=== PATIENT | male | born 1965 | race Caucasian/White ===

== ENCOUNTER → 2016-06-12 | Outpatient (CLI) | payer OTHER ==
--- NOTE | 2016-06-12 19:54 | CT ---
EXAMINATION TYPE: CT soft tissue neck w con DATE OF EXAM: 06/12/2016 5:22 PM COMPARISON: NONE HISTORY: pain when swallowing and feeling of foreign object in throat. CT DLP: 846 mGycm CONTRAST: CT scan of the neck is performed with IV Contrast, patient injected with 100 mL of Omnipaque 300. Contrast enhanced CT of the neck was performed from the skull base through the lung apices. AIRWAY: The supraglottic, glottic, and subglottic portions of the airway appear patent and free of mass. SALIVARY GLANDS: The submandibular and parotid glands are free of mass or inflammatory process. THYROID GLAND: No nodules or masses seen. LYMPH NODES: No adenopathy seen greater than 1cm. LUNG APICES: No nodule or mass is seen. OTHER: Vascular structures are patent. No significant degenerative change of the cervical spine. N o abscess seen. IMPRESSION: No distinct abnormality seen. No foreign body evident.
== END | disposition home or self-care (01) ==
LOC: RADCTMAIN 16:54
PROVIDERS: ATTEND Otolaryngology
DX: R13.10 Dysphagia, unspecified (principal)
CPT/HCPCS: 70491; Q9967

== ENCOUNTER → 2016-06-25 | Outpatient (CLI) | payer OTHER | END | disposition home or self-care (01) | LOC: LABWHC1 16:18 | PROVIDERS: ATTEND Otolaryngology | DX: E06.9 Thyroiditis, unspecified (principal) | CPT/HCPCS: 36415; 84439; 84443; 86376 ==

== ENCOUNTER 2016-07-26 09:44 | Day surgery (SDC) | payer OTHER ==
[2016-07-23 15:47] VITALS: BMI 27.6
[~2016-07-26 09:44] MED LIST: LACTATED RINGERS 1,000 ML IV SCH
[2016-07-26] MEDS ORDERED: LIDOCAINE 1% 20 ML VIAL (10MG/ML) FOR IV START INTRADERMA ONE (10:12)
[2016-07-26 10:19] VITALS: TEMP 97.5
[2016-07-26] MEDS ORDERED: fentaNYL (PF) 50 MCG/ML 2 ML AMP ONE (10:48)
[2016-07-26] MEDS ORDERED: MIDAZOLAM 2 MG/2 ML VIAL ONE (10:48)
[2016-07-26] MEDS ORDERED: PROPOFOL 10 MG/ML 20 ML VIAL IV ONE (10:48)
--- NOTE | 2016-07-26 11:11 | P.PCN ---
Date of Procedure: 07/26/16 Procedure(s) Performed: BRIEF HISTORY: Patient is a 51-year-old, pleasant, white male, scheduled for an upper endoscopy as a part of evaluation of intermittent dysphagia to solids for the last few weeks duration. He does complain of occasional heartburn but denies any odynophagia. He does have passive regurgitation. He takes Prilosec as needed. PROCEDURE PERFORMED: Esophagogastroduodenoscopy with biopsy. PREOPERATIVE DIAGNOSIS: Intermittent dysphagia to solids and history of gastroesophageal reflux disease. IV sedation per anesthesia. PROCEDURE: After informed consent was obtained, the patient was brought into the endoscopy unit. IV conscious sedation was administered by Anesthesia under continuous monitoring. Initially the Olympus GIF-140 video endoscope was inserted into the mouth. Esophagus intubated without any difficulty. There was some tightness noted and the cricopharyngeus but no obvious stricture identified. The scope was gradually advanced into the stomach and duodenum and carefully examined. The bulb and the second part of the duodenum appeared normal. The scope at this time was withdrawn to the stomach, adequately insufflated with air, and upon careful examination, mucosa of the antrum, body, cardia and the fundus appeared normal. The scope was then withdrawn into the esophagus. The GE junction was located at 39 cm from the incisors. The esophagus appeared normal. There were no erosions or ulcerations seen . Biopsies were done from esophagus to rule out years of age esophagitis. The proximal cervical esophagus was once again carefully examined and there appeared to be some stiffness to the passage of the scope and possibility of extrinsic compression from a cervical osteophyte cannot be excluded. However there was no mucosal abnormality seen and the patient tolerated the procedure well. IMPRESSION: 1. Tightness of the cricopharyngeus but no obvious esophageal dysfunction, rule out extrinsic compression him cervical osteophytes. 2. Esophagus appeared normal with no evidence of esophagitis or esophageal stricture. RECOMMENDATIONS: The findings of this examination were discussed with the patient his family. He was advised to follow with the biopsy results. He can continue with Prilosec as needed. He was briefly educated about antireflux measures.
[2016-07-26 11:19] VITALS: PULSE 66; RESP 18
[2016-07-26 11:35] VITALS: BP 117/80
== END 2016-07-26 11:59 | disposition home or self-care (01) ==
LOC: ORWHC2ENDO 09:44
PROVIDERS: ATTEND Internal Medicine Gastroenterology
DX: K22.8 Other specified diseases of esophagus (principal); M54.9 Dorsalgia, unspecified; F17.200 Nicotine dependence, unspecified, uncomplicated; Z79.891 Long term (current) use of opiate analgesic; Z79.1 Long term (current) use of non-steroidal anti-inflammatories (NSAID)
CPT/HCPCS: 88305; 43239; J2250; J3010; J2704

== ENCOUNTER → 2016-09-13 | Outpatient (CLI) | payer OTHER ==
--- NOTE | 2016-09-13 15:27 | NM ---
EXAMINATION TYPE: NM bone scan whole body DATE OF EXAM: 09/13/2016 1:46 PM COMPARISON: Lumbar spine 26 July 2014, lumbar MRI 21 May 2016 HISTORY: Low back pain, M [age] Delayed whole-body scanning was performed following the injection of 27 mCi Tc 99m MDP. Images acqui red 3.5 hours post injection. FINDINGS: Soft tissue uptake is normal. Mild spinal curvature may be present. Uptake within the feet, knees, wr ists, shoulders is likely degenerative. Small focal area of uptake is noted at the right eighth rib a nteriorly. Correlate for history of trauma. IMPRESSION: Mild degenerative changes. Mild spinal curvature in the lumbar spine.
== END | disposition home or self-care (01) ==
LOC: RADNMMAIN 09:54
PROVIDERS: ATTEND Neurological Surgery
DX: M47.816 Spondylosis without myelopathy or radiculopathy, lumbar region (principal); M43.9 Deforming dorsopathy, unspecified
CPT/HCPCS: 78306; A9503

== ENCOUNTER 2019-02-12 10:49 | Day surgery (SDC) | payer OTHER ==
[~2019-02-12 10:49] MED LIST changes: +LIDOCAINE 1% 20 ML VIAL (10MG/ML) FOR IV START INTRADERMA PRN
[2019-02-12 11:11] VITALS: TEMP 97.8
[2019-02-12] MEDS ORDERED: LACTATED RINGERS 1,000 ML IV ONE (11:11)
[2019-02-12] MEDS ORDERED: MIDAZOLAM 2 MG/2 ML VIAL ONE (12:13)
[2019-02-12] MEDS ORDERED: fentaNYL (PF) 50 MCG/ML 2 ML AMP ONE (12:13)
[2019-02-12] MEDS ORDERED: PROPOFOL 10 MG/ML 20 ML VIAL IV ONE (12:13)
--- NOTE | 2019-02-12 12:32 | P.PCN ---
Date of Procedure: 02/12/19 Procedure(s) Performed: BRIEF HISTORY: Patient is a 53-year-old pleasant white fmale scheduled for an elective colonoscopy as a part of evaluation of intermittent rectal bleeding for the last few months duration. PROCEDURE PERFORMED: Colonoscopy with snare polypectomy. PREOPERATIVE DIAGNOSIS: Intermittent rectal bleeding. IV sedation per Anesthesia. PROCEDURE: After informed consent was obtained, the patient, was brought into the endoscopy unit. IV sedation was administered by Anesthesia under continuous monitoring. Digital rectal examination was normal. Initially the Olympus CF-160 flexible video colonoscope was then inserted in the rectum, gradually advanced into the cecum without any difficulty. Careful examination was performed as the scope was gradually being withdrawn. Ileocecal valve and the appendiceal orifice were visualized and appeared normal. Prep was excellent. Mucosa of the cecum, ascending colon, transverse colon, appeared normal. In the descending colon there was a 7 mm sessile polyp removed by snare polypectomy. Rest of the descending colon, sigmoid colon, and rectum appeared normal. In the proximal rectum there was a 1 cm broad-based polyp removed by snare polypectomy Retroflexion was performed in the rectum and no lesions were seen. The patient tolerated the procedure well. IMPRESSION: 7 mm sessile descending colon polyp status post polypectomy 1 cm proximal rectal polyp status post polypectomy RECOMMENDATIONS: Findings of this examination were discussed with the patient as well as his family. He was advised to follow with the biopsy results. If the biopsy shows an adenoma he can have a repeat colonoscopy in 5 years.
[2019-02-12 12:41] VITALS: PULSE 64; RESP 16
[2019-02-12 12:47] VITALS: BP 112/74
== END 2019-02-12 13:10 | disposition home or self-care (01) ==
LOC: ORWHC2ENDO 10:49
PROVIDERS: ATTEND Internal Medicine Gastroenterology
DX: D12.4 Benign neoplasm of descending colon (principal); K62.1 Rectal polyp; Z79.1 Long term (current) use of non-steroidal anti-inflammatories (NSAID)
CPT/HCPCS: 88305; 45385; J2250; J3010; J2704

== ENCOUNTER → 2020-10-09 | Outpatient (CLI) | payer OTHER ==
--- NOTE | 2020-10-09 14:50 | CTL ---
EXAMINATION TYPE: CT Low Dose Lung DATE OF EXAM ORDERED: 10/09/2020 HISTORY: Long-term tobacco use. Lung cancer screening CT DLP: [address] CTDI: 3.3 mGy Automated exposure control for dose reduction was used. SCREENING VISIT: Initial study COMPARISON: None TECHNIQUE: Low dose computed tomography scan was performed through the chest at 1 mm thick sections a nd reconstructed images in the coronal plane at [address] DIAGNOSTIC QUALITY: Satisfactory FINDINGS: LUNG NODULES: Present, detailed below: Anterior right midlung nodule measures 11.7 x 9.2 mm axial image 150 is in close proximity to the rig ht minor fissure. LUNGS: COPD: Severity: Mild Fibrosis: Severity: None Lymph nodes: None Other findings: None RIGHT PLEURAL SPACE: Effusion: None Calcification: None Thickening: None Pneumothorax: None LEFT PLEURAL SPACE: Effusion: None Calcification: None Thickening: None Pneumothorax: None HEART: Heart Size: Normal Coronary calcification: None Pericardial effusion: None OTHER FINDINGS: Upper abdomen: None Bony thorax: Scoliotic curvature centered upper thoracic spine. Supraclavicular region: None Other: None IMPRESSION: Mild to borderline moderate emphysematous change with 1.2 x 0.9 cm anterior right midlung nodule. Close proximity to fissure may reflect intrapulmonary lymph node but cannot definitively loc alized to the fissure. CT LUNG RAD AND CT CHEST RECOMMENDATION: Lung-Rad 4A Suspicious: Follow-up 3 month LDCT or PET/CT may be used when there is a > 8 mm solid component. Recommendation: PET/CT follow-up. S Modifier (other clinically significant findings): None
== END | disposition home or self-care (01) ==
LOC: RADCTMAIN 13:56
DX: Z12.2 Encounter for screening for malignant neoplasm of respiratory organs (principal); J43.9 Emphysema, unspecified; R91.1 Solitary pulmonary nodule
CPT/HCPCS: 71271

== ENCOUNTER → 2021-04-13 | Outpatient (CLI) | payer OTHER ==
--- NOTE | 2021-04-14 17:28 | PE ---
EXAMINATION TYPE: PET CT fusion skull to thigh DATE OF EXAM: 04/13/2021 COMPARISON: Low-dose lung screening CT October 09, 2020 HISTORY: Abnormal CT, solitary pulmonary nodule TECHNIQUE: Following the intravenous administration of 8.78 mCi of F-18 FDG, whole body images are p erformed from the skull base to the midthigh. Images are reviewed on the computer in the coronal, ax ial, and sagittal planes. Reconstructed rotating images are created on independent workstation and r eviewed on the computer. A localization and attenuation correction CT is performed in conjunction w ith the PET scan. Blood glucose level equals 85. SCAN: Initial Scan FINDINGS: SKULL BASE AND NECK: No abnormal hypermetabolic uptake. CHEST, MEDIASTINUM, AND HILAR REGION: Redemonstration of background mild underlying emphysematous lara nge with stable anterior right midlung 12 x 9 mm nodule axial image 79 that is ametabolic. No areas o f abnormal hypermetabolic uptake in the thorax. ABDOMEN AND PELVIS: No adrenal masses. Normal excretion. No abnormal hypermetabolic uptake. OSSEOUS STRUCTURES: No abnormal hypermetabolic uptake. OTHER CT: Enlarged prostate consistent with BPH. Mild bladder wall thickening presumed related to out let obstruction from BPH. Slight underlying scoliotic curvature. Moderate disc space narrowing L2-L3 and L5-S1 levels. Moderate axial joint space loss both hips. IMPRESSION: No suspicious hypermetabolic uptake in the 12 x 9 mm anterior right mid lung pulmonary no dule. Consider follow-up CT in 6-12 months time to document stability.
== END ==
LOC: RADPETMAIN 13:50
PROVIDERS: ATTEND Internal Medicine Critical Care Medicine
DX: R91.1 Solitary pulmonary nodule (principal)
CPT/HCPCS: 78815; A9552

== ENCOUNTER → 2021-09-21 | Outpatient (CLI) | payer OTHER ==
--- NOTE | 2021-09-21 15:42 | MR ---
EXAMINATION TYPE: MR cspine/lspine wo con DATE OF EXAM: 09/21/2021 COMPARISON: MR lumbar spine 05/21/2016 HISTORY: Sever low back that radiates down both legs, neck pain that radiates down arms, worsening ar thritis TECHNIQUE: Multiplanar, multisequence imaging of the cervical and lumbar spine is performed without I V contrast. FINDINGS: Lumbar spine MRI: Lumbar vertebral bodies show preserved height and alignment. There is multilevel sp ondylosis, endplate discogenic marrow signal change. Loss of disc height signal is present at interve rtebral levels consistent with disc desiccation and degenerative disc disease. Multilevel vacuum disc phenomenon noted. There is no significant spinal stenosis. The conus is at L1 shows an unremarkable appearance. L5-S1: Facet arthropathy changes present. Circumferential extension endplate disc complex encroaches on the inferior aspect of the foramina. Posterior extension endplate disc complex causes minimal ante rior mass effect on the thecal sac. L4-5: Facet arthropathy with hypertrophy ligamentum flavum causes some posterior lateral mass effect on the thecal sac. No significant foraminal encroachment. L3-4: Minimal posterior extension endplate disc complex causes slight anterior mass effect on the the farhat sac. No significant foraminal encroachment. L2-3: Posterior extension endplate disc complex causes minimal anterior mass effect on the thecal sac . No significant foraminal encroachment. L1-2: Posterior circumferential disc bulge causes mild anterior mass effect on the thecal sac. IMPRESSION: Degenerative disc disease and facet arthropathy. Cervical spine MRI: Cervical vertebral bodies show preserved height. There is near-anatomic alignment . Multilevel spondylosis with endplate discogenic marrow signal changes present. Loss of disc height signal is present at C3-4, C4-5, C5-6 and C6-7. Cervical cord signal is thought to be maintained, the re is some increased signal in the posterior aspect of the cervical cord which is symmetric and proxi mal C3-4 level of questionable clinical significance. There is no significant spinal stenosis. C2-3: There is some facet arthropathy present. No evident disc herniation or significant foraminal en croachment. C3-4: Uncovertebral joint hypertrophy, facet arthropathy results in left-sided foraminal encroachment greater than right, posterior extension endplate disc complex causes mild anterior mass effect on th e thecal sac C4-5: Some mild left-sided foraminal encroachment. Posterior extension of endplate disc complex cause s minimal anterior mass effect on the thecal sac. C5-6: Posterior extension endplate disc complex causes anterior mass effect on the thecal sac, only m ild spinal stenosis. Uncovertebral joint hypertrophy and facet arthropathy results in left-sided fora jerrell encroachment. C6-7: Uncovertebral joint hypertrophy results in bilateral foraminal encroachment. Posterior extensio n of endplate disc complex causes mild anterior mass effect on the thecal sac, mild spinal stenosis. C7-T1: There is some foraminal encroachment on the left due to uncovertebral joint hypertrophy. Minim al posterior disc bulge causes slight anterior mass effect on the thecal sac, somewhat eccentric towa rds the left. IMPRESSION: Degenerative disc disease, multilevel foraminal encroachment as described..
== END | disposition home or self-care (01) ==
LOC: RADMRIMAIN 14:05
DX: M54.50 Low back pain, unspecified (principal)
CPT/HCPCS: 72141; 72148

== ENCOUNTER → 2022-03-09 | Outpatient (CLI) | payer OTHER ==
--- NOTE | 2022-03-10 14:24 | CTL ---
EXAMINATION TYPE: CT Low Dose Lung DATE OF EXAM ORDERED: 03/09/2022 HISTORY: . Lung cancer screening CT DLP: 117.[address] CTDI: 3.30 mGy Automated exposure control for dose reduction was used. SCREENING VISIT: 2 COMPARISON: TECHNIQUE: Low dose computed tomography scan was performed through the chest at 1 mm thick sections a nd reconstructed images in multiple planes at 1 mm and [address] DIAGNOSTIC QUALITY: Satisfactory FINDINGS: LUNG NODULES: Present, detailed below: The nodular density associated with the fissure anteriorly within the right middle lobe is unchanged mm nodule on CT image . This nodule is . LUNGS: COPD: Severity: Mild Fibrosis: Severity: None Lymph nodes: Other findings: RIGHT PLEURAL SPACE: Effusion: None Calcification: None Thickening: None Pneumothorax: None LEFT PLEURAL SPACE: Effusion: None Calcification: None Thickening: None Pneumothorax: None HEART: Heart Size: Normal Coronary Calcification: None Pericardial Effusion: None OTHER FINDINGS: Upper abdomen: None Bony thorax: None Supraclavicular region: None Other: None IMPRESSION: Benign CT LUNG RAD AND CT CHEST RECOMMENDATION: Lung-Rad 2 Benign Appearance or Behavior: Continue annual sc reening with LDCT in 12 months. S Modifier (other clinically significant findings):
== END | disposition home or self-care (01) ==
LOC: RADCTMAIN 07:42
DX: Z12.2 Encounter for screening for malignant neoplasm of respiratory organs (principal); Z87.891 Personal history of nicotine dependence
CPT/HCPCS: 71271

== ENCOUNTER 2022-04-23 13:20 | Emergency (ER) | payer OTHER ==
[2022-04-23 13:46] VITALS: BP 143/84; PULSE 79; RESP 16; TEMP 98
--- NOTE | 2022-04-23 14:53 | CT ---
EXAMINATION TYPE: CT brain cspine wo con DATE OF EXAM: 04/23/2022 COMPARISON: MRI cervical spine September 21, 2021 HISTORY: Pt fall, hit head, c/o headache and neck pain. CT DLP: 1573.8 mGycm. Automated Exposure Control for Dose Reduction was Utilized. TECHNIQUE: CT scan of the head and cervical spine are performed without contrast. FINDINGS: There is no acute intracranial hemorrhage, mass effect, or midline shift identified. The ventricles and sulci are within normal limits in size for patient's age. The calvarium is intact. Th e globes are intact and the visualized sinuses are clear. Cervical spine is visualized in its entirety from C1 through upper thoracic levels and redemonstrates levoconvex scoliosis centered upper thoracic spine. Prevertebral soft tissue remains within normal limits. The C1-C2 articulation is within normal limits on the coronal images. Slight grade 1 retrol isthesis C5 on C6 and C6 on C7 is redemonstrated. Moderate to severe spurring and disc space narrowin g C4-C5 through C6-C7 levels is redemonstrated. Posterior spur disc complexes efface the anterior the farhat sac at these levels and C3-C4 level similar to prior MRI. Lung apices show no pneumothorax. Thyro id gland appears within normal limits. IMPRESSION: 1. There is no acute fracture or dislocation evident in the cervical spine. 2. No acute intracranial hemorrhage or midline shift is seen.
--- NOTE | 2022-04-23 15:00 | ED ---
General Adult HPI - General Chief complaint: Head Injury Stated complaint: [facility] - fall from truck, head injury Time Seen by Provider: 04/23/22 14:10 Source: patient, RN notes reviewed, old records reviewed Mode of arrival: ambulatory Limitations: no limitations - History of Present Illness Initial comments: This is a 56-year-old male presents emergency Department complaining that he fell out of a truck backwards and hit his head on the concrete. Patient states he did not was conscious he was not days. Patient states he does have a headache. Patient denies any numbness weakness. Patient denies any nausea vomiting per patient denies any neck pain. Patient denies any neck pain with movement. Patient denies any back or chest pain patient denies any extremity pain. Patient's only complaint is a headache at this time. - Related Data Home Medications Medication Instructions Recorded Confirmed Meloxicam [Mobic] 7.5 mg PO BID 07/23/16 02/11/19 traMADol HCL [Ultram] 50 mg PO HS PRN 07/23/16 02/11/19 Allergies Allergy/AdvReac Type Severity Reaction Status Date / Time No Known Allergies Allergy Verified 02/11/19 09:27 Review of Systems ROS Statement: Those systems with pertinent positive or pertinent negative responses have been documented in the HPI. ROS Other: All systems not noted in ROS Statement are negative. Past Medical History Past Medical History: Musculoskeletal Disorder, Osteoarthritis (OA) Additional Past Medical History / Comment(s): Deg. Disc History of Any Multi-Drug Resistant Organisms: None Reported Past Surgical History: Tonsillectomy Additional Past Surgical History / Comment(s): GANGLION CYST, RIGHT WRIST Past Anesthesia/Blood Transfusion Reactions: No Reported Reaction Past Psychological History: No Psychological Hx Reported Past Alcohol Use History: Occasional Past Drug Use History: None Reported - Past Family History Sister(s) Family Medical History: Deep Vein Thrombosis (DVT) General Exam - General Exam Comments Initial Comments: GENERAL: Patient is well-developed and well-nourished. Patient is nontoxic and well- hydrated and is in mild distress. Patient's scalp has a very superficial abrasion to the occipital region ENT: Neck is soft and supple. No significant lymphadenopathy is noted. Oropharynx is clear. Moist mucous membranes. Neck has full range of motion without eliciting any pain. No neck pain on palpation EYES: The sclera were anicteric and conjunctiva were pink and moist. Extraocular movements were intact and pupils were equal round and reactive to light. Eyelids were unremarkable. PULMONARY: Unlabored respirations. Good breath sounds bilaterally. No audible rales rhonchi or wheezing was noted. CARDIOVASCULAR: There is a regular rate and rhythm ABDOMEN: Soft and nontender with normal bowel sounds. SKIN: Skin is clear with no lesions or rashes and otherwise unremarkable. NEUROLOGIC: Patient is alert and oriented x3. Cranial nerves II through XII are grossly intact. Motor and sensory are also intact. Normal speech, volume and content. Symmetrical smile. MUSCULOSKELETAL: Normal extremities with adequate strength and full range of motion. LYMPHATICS: No significant lymphadenopathy is noted PSYCHIATRIC: Normal psychiatric evaluation. Limitations: no limitations Course Vital Signs 04/23/22 13:42 Temperature 98 F Pulse Rate 79 Respiratory 16 Rate Blood Pressure 143/84 O2 Sat by Pulse 98 Oximetry Medical Decision Making - Medical Decision Making I interpreted CT of the brain. CT showed no acute abnormality I interpreted the C-spine of the brain. It showed no acute abnormality. Disposition Clinical Impression: Closed head injury Disposition: HOME SELF-CARE Instructions (If sedation given, give patient instructions): Concussion (ED) Is patient prescribed a controlled substance at d/c from ED?: No Referrals: [facility]inic [Primary Care Provider] - 1-2 days Time of Disposition: 15:00
== END 2022-04-23 15:16 | disposition home or self-care (01) ==
LOC: EC 13:20
DX: S40.219A Abrasion of unspecified shoulder, initial encounter (principal); M19.90 Unspecified osteoarthritis, unspecified site; Z88.5 Allergy status to narcotic agent; V89.9XXA Person injured in unspecified vehicle accident, initial encounter; Y92.410 Unspecified street and highway as the place of occurrence of the external cause
CPT/HCPCS: 70450; 72125; 99284

== ENCOUNTER → 2022-05-16 | Outpatient (CLI) | payer OTHER ==
[2022-05-16 11:00] VITALS: BP 151/67; PULSE 66; RESP 18; TEMP 98.4
--- NOTE | 2022-05-16 11:03 | P.PAINCN ---
History of Present Illness - Reason for Consult Consult date: 05/16/22 Lumbar back pain, and right lower extremity pain - Chief Complaint Lumbar back pain, and right lower extremity pain - History of Present Illness Mr. Saldivar is a 56 year old pleasant male patient came to [facility] pain management clinic for initial evaluation for right-sided lumbar back pain more and pain radiating to right lower extremity. Mr. Saldivar referred to [facility] pain clinic by [facility]. Patient described pain started many years ago. Patient described pain as aching, sharp, throbbing, burning type of pain. Pain radiating to right lower extremity causing numbness, tingling sensation. Pain radiating from his lower back to all the way to her feet. Patient rated pain 3 -5out of 10 in severity. Which may very her pain level from 3-8 out of 10 in severity. Pain increases with activities, and standing, walking, sitting, bending forward, and lifting. Pain decreases with pain medications and resting. Overall patient activities decreased secondary to pain. Pain medications helping to some extent. Because of the pain patient is feeling lack of sleep and interest and energy. Denied any bowel or bladder problems. Patient denies any adverse effects to medications. He is not using any walking aids for walking. Complaining depression secondary to pain but denied any suicidal/homicidal tendency at this time. Sleep pattern [ ]. There are no signs of narcotic diversion/misuse/overuse and no new-onset weakness, bowel/bladder incontinence, saddle anesthesia, or no red flag symptoms. He tried intervention procedures in the past for his neck which helped only short period of pain relief from neurologist. Conservative treatment tried: Cuym-prz-ockljio medications, and Mobic, tramadol Hrdy-zsb-visrjcp lidocaine patch Ice, and heat Physical therapy exercises, exercises at home as tolerated TENS unit's-useful Chiropractic therapy-useful Review of Systems All systems: negative Constitutional: Denies chills, Denies fever Eyes: denies blurred vision, denies pain Ears, nose, mouth and throat: Denies headache, Denies sore throat Cardiovascular: Denies chest pain, Denies shortness of breath Respiratory: Denies cough Gastrointestinal: Denies abdominal pain, Denies diarrhea, Denies nausea, Denies vomiting Musculoskeletal: Reports leg numbness/tingling, Reports shooting leg pain, Denies myalgias Integumentary: Denies pruritus, Denies rash Neurological: Denies numbness, Denies weakness Psychiatric: Denies anxiety, Denies depression Endocrine: Denies fatigue, Denies weight change Past Medical History Past Medical History: Musculoskeletal Disorder, Osteoarthritis (OA) Additional Past Medical History / Comment(s): Deg. Disc History of Any Multi-Drug Resistant Organisms: None Reported Past Surgical History: Tonsillectomy Additional Past Surgical History / Comment(s): GANGLION CYST, RIGHT WRIST Past Anesthesia/Blood Transfusion Reactions: No Reported Reaction Past Psychological History: No Psychological Hx Reported Smoking Status: Former smoker, Never smoker Past Alcohol Use History: Occasional Additional Past Alcohol Use History / Comment(s): STARTED AT 20 YRS, .5 PPD. Past Drug Use History: None Reported - Past Family History Sister(s) Family Medical History: Deep Vein Thrombosis (DVT) Medications and Allergies Home Medications Medication Instructions Recorded Confirmed Type Meloxicam [Mobic] 7.5 mg PO BID 07/23/16 02/11/19 History traMADol HCL [Ultram] 50 mg PO HS PRN 07/23/16 02/11/19 History Allergies Allergy/AdvReac Type Severity Reaction Status Date / Time No Known Allergies Allergy Verified 05/16/22 11:03 Physical Exam General: Well-developed, well-nourished, no acute distress HEENT: Normocephalic, and atraumatic Neck: Supple, no neck swelling Psychiatric: Appropriate mood, and affect [employer]: No focal neurological deficits Musculoskeletal: Upper extremity: Normal strength, and range of motion. Sensation grossly intact Lower extremity: Normal strength, and normal range of motion, sensation grossly intact Lumbar spine: Paravertebral tenderness: positive on right side Lumbar facet load test : positive on right side Sacroiliac joint tenderness: Negative Straight leg raising test positive on right side Results Comments: Lumbar spine MRI done on 05/21/2016 showed L5-S1: Facet arthropathy. Circumferential extension endplate disc complex encroaching on inferior aspect of the foramina. Posterior extension endplate disc complex causing minimal anterior mass affect on the thecal sac. L4-L5: Facet arthropathy with hypertrophic ligamentum flavum causing some posterior lateral mass affect on the thecal sac. No significant foraminal en croachment. L3-L4: Minimal posterior extension endplate disc complex causing slight anterior mass affect on the thecal sac. No significant foraminal encroachment L2-L3: Posterior extension endplate disc complex causing minimal anterior mass affect on the thecal sac. No significant foraminal encroachment L1-L2: Posterior circumferential disc bulge causing mild anterior mass effect on thecal sac Assessment and Plan Assessment: Lumbar spondylosis without myelopathy myofascial pain syndrome, , and chronic pain syndrome Lumbar hstrmssuivybj-hqszv-hmwdn Plan: #1 Diagnoses, prognosis, and multiple treatment options including but not limited to physical therapy, interventional therapy, adjunct medication therapy, narcotic medication, and surgical options were discussed with the patient. And all questions were answered to the patient's satisfaction. #2 treatment plan agreement : Patient was thoroughly discussed regarding the treatment options, alternatives, and importance of exercises as tolerated. Patient clearly understood. #3 Patient was counseled on importance of regular exercise. Including veda chi, aerobic exercises as tolerated. Which helps for chronic pain, and overall well- being. Patient also counseled regarding importance of weight control rolling chronic pain, and overall other health issues. By altering diet habits, minimizing sugar intake, and processed foods helps in minimizing Inflammation. Also discussed with the patient regarding intermittent fasting. Patient counseled regarding smoking associated with chronic pain, worsening inflammation, and smoking effects on liver, and medication metabolism. And encouraged to stop smoking. #4 investigations: MAPS- reviewed , urine drug test-none #5 diagnostic tests: None #6 consultation : Physical therapy 2 times per week for 6 weeks duration # 7 interventional procedures: L5-S1 epidural steroid injection if needed in future. Procedure, complications, alternatives discussed with the patient. #8 medications #1 tramadol, and Mobic as per his primary care physician #9 morphine milligrams equivalents dose ( MME) per day: 0 from the pain clinic. # 10 continue TENS unit's, and percussion massage device #11 disposition: scheduled to follow up with pain clinic in 8 weeks duration. Time with Patient: Less than 30 PQRS Measure Charge Sheet Measure #130: Documentation of Current Meds in Medical Chart: Patient's medications documented in chart Measure #226: Tobacco Use: Screen & Cessation Intervention: Pt screened for tobacco use AND intervention given Measure #111: Pneumonia Vaccination: Pneumococcal vaccine NOT administered or previously given Measure #47: Advance Care Plan: Advance care planning discussed & documented, pt chose/unable to give Measure #412: Opioid Treatment Agreement: No documentation of signed opioid treatment agreement Measure #408: Opioid Therapy Follow-up Evaluation: Patient had NO f/u eval minimum every 3 months during opioid therapy Measure #317: Preventitive Care & Scrn High Bld Press & F/U: Normal blood press ure, f/u not required Measure #128: Body Mass Index (BMI) Screening & Follow-up: BMI documented ABOVE normal parameters - f/u documented Measure #131: Pain Assessment & Follow-up: Pain positive & plan documented Measure #431: Unhealthy Alcohol Use Preventative Care & Scrn: Patient not identified as an unhealthy alcohol user PQRS Narrative: Smoking Status Current every day smoker Home Medications: Ambulatory Orders Meloxicam [Mobic] 7.5 mg PO BID 07/23/16 traMADol HCL [Ultram] 50 mg PO HS PRN 07/23/16
== END ==
LOC: PNWHC3 10:13
DX: M47.26 Other spondylosis with radiculopathy, lumbar region (principal); G89.29 Other chronic pain; M79.10 Myalgia, unspecified site; M19.90 Unspecified osteoarthritis, unspecified site; F17.200 Nicotine dependence, unspecified, uncomplicated
CPT/HCPCS: 99211

== ENCOUNTER → 2023-03-11 | Outpatient (CLI) | payer OTHER ==
--- NOTE | 2023-03-12 08:51 | CTL ---
EXAMINATION TYPE: CT Low Dose Lung DATE OF EXAM ORDERED: 03/11/2023 HISTORY: . Lung cancer screening CT DLP: 95.[address] CTDI: 2.5 mGy Automated exposure control for dose reduction was used. SCREENING VISIT: COMPARISON: 03/09/2022 TECHNIQUE: Low dose computed tomography scan was performed through the chest at 1 mm thick sections a nd reconstructed images in multiple planes at 1 mm and [address] DIAGNOSTIC QUALITY: Satisfactory FINDINGS: There is a stable 9 x 10 mm right middle lobe nodule unchanged from prior exam. There is a stable 5 mm subpleural nodule left lower lobe axial image 209. There are multiple subpleural 3 mm less nodules in the right upper lobe which are retrospectively sta ble. Subpleural 2 mm nodule left upper lobe axial image 102 stable. Aorta normal caliber. Heart size is normal. Trace pericardial fluid. No pleural effusion or pneumotho rax. Small hiatal hernia. Hypertrophic and degenerative changes spine IMPRESSION: 1. Stable multiple pulmonary nodules largest measured 1 cm right middle lobe unchanged from prior exa m. Recommend continue low dose screening CT scan in [address] LUNG RAD AND CT CHEST RECOMMENDATION: Lung-Rad 2 Benign Appearance or Behavior: Continue annual sc reening with LDCT in 12 months.
== END | disposition home or self-care (01) ==
LOC: RADCTMAIN 17:01
DX: Z12.2 Encounter for screening for malignant neoplasm of respiratory organs (principal); R91.8 Other nonspecific abnormal finding of lung field; Z87.891 Personal history of nicotine dependence
CPT/HCPCS: 71271

== ENCOUNTER → 2024-03-12 | Outpatient (CLI) | payer OTHER ==
--- NOTE | 2024-03-12 22:55 | CT ---
EXAMINATION TYPE: CT chest wo con DATE OF EXAM: 03/12/2024 COMPARISON: 03/11/2023 HISTORY: Follow up for lung nodule found [address] DLP: 397.9 mGycm, Automated exposure control for dose reduction was used. CONTRAST: Performed injected with 0 mL of Isovue 300. TECHNIQUE: Axial images were obtained at 5 mm thick sections. Reconstructed images are reviewed on [employer] computer in the coronal plane. FINDINGS: Portion of the thyroid visualized is normal. There is a 1.2 cm nodule within the anterior right middle lobe. Previous measurement 1.1 cm, within m easurement error. There is a stable 0.5 cm peripheral nodule posterolateral left lung. Series 4 image 42. Previous subpleural nodules not readily apparent on the current exam No enlarged mediastinal or hilar adenopathy is evident. The ascending aorta diameter at the level o f the main pulmonary artery is 3.4 cm. The main pulmonary artery diameter at the bifurcation is 2.[address] sections are obtained through the upper abdomen. Abdomen is essentially unremarkable. IMPRESSION: 1. Stable right middle lobe nodule and stable left peripheral lung nodule. [facility], Workstation: [email or web address], 03/12/2024 10:52 PM
== END | disposition home or self-care (01) ==
LOC: RADCTMAIN 16:54
PROVIDERS: ATTEND Physician Assistant
DX: R91.8 Other nonspecific abnormal finding of lung field (principal)
CPT/HCPCS: 71250

== ENCOUNTER 2024-11-19 09:57 | Day surgery (SDC) | payer OTHER ==
[2024-11-19] MEDS: IV FLUID CONTINUATION 1,000 ML IV ONE (10:28)
[2024-11-19 10:37] VITALS: RESP 16; TEMP 97.4
[2024-11-19 10:44] LABS: Glucose,Whole Blood 99 mg/dL (70-110)
[2024-11-19] MEDS: LACTATED RINGERS 1,000 ML IV SCH (10:45)
[2024-11-19] MEDS ORDERED: PROPOFOL 10 MG/ML 20 ML VIAL IV ONE (11:30)
[2024-11-19 12:11] VITALS: BP 120/79; PULSE 58
--- NOTE | 2024-11-30 11:02 | P.PCN ---
Date of Procedure: 11/19/24 Procedure(s) Performed: BRIEF HISTORY: Patient is a 59-year-old pleasant white male scheduled for an elective colonoscopy as a part of screening for by history of colon polyps. His last colonoscopy was 5 years ago and was noted to have a tubular adenoma. PROCEDURE PERFORMED: Colonoscopy with snare polypectomy. PREOPERATIVE DIAGNOSIS: Screening for history of colon polyps. IV sedation per Anesthesia. PROCEDURE: After informed consent was obtained, the patient, was brought into the endoscopy unit. IV sedation was administered by Anesthesia under continuous monitoring. Digital rectal examination was normal. Initially the Olympus CF-160 flexible video colonoscope was then inserted in the rectum, gradually advanced into the cecum without any difficulty. Careful examination was performed as the scope was gradually being withdrawn. Ileocecal valve and the appendiceal orifice were visualized and appeared normal. Prep was excellent. Mucosa of the cecum, ascending colon, transverse colon, descending colon, sigmoid colon, and rectum appeared normal. In the rectum there was a 7 mm polyp that was removed by cold snare polypectomy. Retroflexion was performed in the rectum and no lesions were seen. The patient tolerated the procedure well. IMPRESSION: 7 mm mid rectal polyp status post cold snare polypectomy Rest of the colon appeared normal. RECOMMENDATIONS: Findings of this examination were discussed with the patient as well as his family. He was advised to follow the biopsy results. If the biopsy reveals adenoma he can have repeat colonoscopy in 5 years..
== END 2024-11-19 12:25 | disposition home or self-care (01) ==
LOC: ORWHC2ENDO 09:57
PROVIDERS: ATTEND Internal Medicine Gastroenterology
DX: Z12.11 Encounter for screening for malignant neoplasm of colon (principal); D12.8 Benign neoplasm of rectum; E78.5 Hyperlipidemia, unspecified; M19.90 Unspecified osteoarthritis, unspecified site; F17.200 Nicotine dependence, unspecified, uncomplicated; Z79.891 Long term (current) use of opiate analgesic; Z79.1 Long term (current) use of non-steroidal anti-inflammatories (NSAID); Z79.899 Other long term (current) drug therapy; Z86.0101 Personal history of adenomatous and serrated colon polyps
CPT/HCPCS: 88305; 45385; J2704